=== PATIENT | female | born 1990 | race Caucasian/White ===

== ENCOUNTER 2018-09-06 14:56 | Outpatient (CLI) | payer MEDICAID ==
[2018-09-06 16:24] LABS: ADD UMIC YES; UR ASCORBIC ACID 40 mg/dL (NEGATIVE); UR BACTERIA FEW /HPF (NONE SEEN); UR BILIRUBIN (Dip) NEGATIVE (NEGATIVE); UR BLOOD (Dip) NEGATIVE (NEGATIVE); UR CLARITY SLIGHTLY CLOUDY (CLEAR); UR COLOR YELLOW (YELLOW); UR GLUCOSE (Dip) NEGATIVE (NEGATIVE); UR KETONES (Dip) NEGATIVE (NEGATIVE); UR LEUKOCYTE ESTERASE (Dip) 1+ Leu/ul (NEGATIVE); UR NITRITE (Dip) NEGATIVE (NEGATIVE); UR RBC 2 /HPF (0-5); UR SPECIFIC GRAVITY (Dip) 1.018 (1.003-1.030); UR SQUAMOUS EPITHELIAL CELL MANY /HPF (FEW); UR TOTAL PROTEIN (Dip) NEGATIVE (NEGATIVE); UR UROBILINOGEN (Dip) NEGATIVE (NEGATIVE); UR WBC 14 /HPF (0-5)
[2018-09-06 16:37] LABS: ADD MAN DIFF? NO; BASOPHILS % 0.3 % (0.0-2.0); EOSINOPHILS # 0.1 10^3/ul (0.0-0.5); HEMATOCRIT 35.9 % (37.0-47.0); HEMOGLOBIN 11.8 g/dl (12.0-16.0); MEAN CORPUSCULAR HEMOGLOBIN 31.3 pg (29.0-33.0); MEAN CORPUSCULAR HGB CONC 32.9 g/dl (32.0-37.0); MEAN CORPUSCULAR VOLUME 95.2 fl (82.0-101.0); MEAN PLATELET VOLUME 10.7 fl (7.4-10.4); MONOCYTE # 1.1 10^3/ul (0.3-0.9); MONOCYTES % 9.4 % (0.0-11.0); NEUTROPHIL # 7.9 10^3/ul (1.6-7.5); NEUTROPHILS % 70.8 % (39.0-77.0); PLATELET COUNT 219 10^3/UL (140-415); RED BLOOD COUNT 3.77 10^6/ul (4.20-5.40); RED CELL DISTRIBUTION WIDTH 12.2 % (11.5-14.5)
[2018-09-06 16:37] LABS: WHITE BLOOD COUNT 11.1 10^3/ul (4.8-10.8)
== END 2018-09-06 17:00 | disposition home or self-care (01) ==
LOC: OBT 14:56 → L-D 14:56 → OBT 17:00
DX: O62.9 Abnormality of forces of labor, unspecified (principal); Z3A.32 32 weeks gestation of pregnancy
CPT/HCPCS: 76815; 76817; 76818; 81001; 82731; 85025

== ENCOUNTER 2018-10-12 04:22 | Inpatient (IN) | payer MEDICAID ==
[2018-10-12] MEDS: LACTATED RINGER'S 1,000 ML IV ×4 (05:59→10:02)
[2018-10-12 06:58] LABS: RUPTURE FETAL MEMBRANES POSITIVE (NEGATIVE)
[2018-10-12] MEDS ORDERED: OXYTOCIN 30 UNITS/LR 500 ML IV ×7 (07:30→14:00)
[2018-10-12] MEDS ORDERED: AMPICILLIN 2 GM/NS (PMX) 100 ML IV (07:30)
[2018-10-12] MEDS ORDERED: BUTORPHANOL 2 MG INJ IV (07:30)
[2018-10-12] MEDS ORDERED: CEFAZOLIN 2 GM/50 ML (PMX) 50 ML IVPB ×2 (07:30→09:30)
[2018-10-12] MEDS ORDERED: IBUPROFEN 600 MG TAB PO (07:30)
[2018-10-12] MEDS ORDERED: CARBOPROST 250 MCG INJ IM ×4 (07:30→14:00)
[2018-10-12] MEDS ORDERED: MISOPROSTOL 200 MCG TAB PR ×4 (07:30→14:00)
[2018-10-12] MEDS ORDERED: METHYLERGONOVINE 0.2 MG INJ IM ×4 (07:30→14:00)
[2018-10-12 07:35] LABS: ADD MAN DIFF? NO
[2018-10-12 07:36] LABS: BASOPHILS % 0.4 % (0.0-2.0); EOSINOPHILS # 0.1 10^3/ul (0.0-0.5); EOSINOPHILS % 1.2 % (0.0-7.0); HEMATOCRIT 36.9 % (37.0-47.0); HEMOGLOBIN 12.2 g/dl (12.0-16.0); LYMPHOCYTES % 27.8 % (15.0-51.0); MEAN CORPUSCULAR HEMOGLOBIN 30.8 pg (29.0-33.0); MEAN CORPUSCULAR HGB CONC 33.1 g/dl (32.0-37.0); MEAN CORPUSCULAR VOLUME 93.2 fl (82.0-101.0); MEAN PLATELET VOLUME 12.8 fl (7.4-10.4); MONOCYTE # 1.1 10^3/ul (0.3-0.9); MONOCYTES % 10.6 % (0.0-11.0); NEUTROPHIL # 6.4 10^3/ul (1.6-7.5); NEUTROPHILS % 59.5 % (39.0-77.0); PLATELET COUNT 205 10^3/UL (140-415); RED BLOOD COUNT 3.96 10^6/ul (4.20-5.40); RED CELL DISTRIBUTION WIDTH 11.9 % (11.5-14.5)
[2018-10-12 07:36] LABS: WHITE BLOOD COUNT 10.7 10^3/ul (4.8-10.8)
[2018-10-12 07:41] LABS: INR 0.82; PROTIME 11.4 Sec (11.9-14.9); PT RATIO 0.9
[2018-10-12 07:42] LABS: PARTIAL THROMBOPLASTIN TIME 27.3 Sec (23.0-35.0)
[2018-10-12 07:45] LABS: ALANINE AMINOTRANSFERASE 12 IU/L (13-69); ALBUMIN 3.5 g/dl (3.3-4.9); ALBUMIN/GLOBULIN RATIO 1.09; ALKALINE PHOSPHATASE 149 IU/L (42-121); ANION GAP 11 (5-13); ASPARTATE AMINO TRANSFERASE 23 IU/L (15-46); BILIRUBIN,INDIRECT 0.2 mg/dl (0-1.1); BILIRUBIN,TOTAL 0.2 mg/dl (0.2-1.3); BLOOD UREA NITROGEN 12 mg/dl (7-20); CALCIUM 8.9 mg/dl (8.4-10.2); CARBON DIOXIDE 22 mmol/L (21-31); CHLORIDE 108 mmol/L (97-110); CREATININE 0.74 mg/dl (0.44-1.00); Estimated GFR > 60 mL/min (>60); GLUCOSE 87 mg/dl (70-220); POTASSIUM 3.7 mmol/L (3.5-5.1); SODIUM 141 mmol/L (135-144); TOTAL PROTEIN 6.7 g/dl (6.1-8.1)
[2018-10-12 08:14] LABS: HEPATITIS B SURFACE ANTIGEN NEGATIVE (NEGATIVE)
[2018-10-12] MEDS: DEXTROSE 5%-LR 1,000 ML IV (08:19)
[2018-10-12] MEDS ORDERED: ONDANSETRON 4 MG INJ (09:49)
[2018-10-12] MEDS ORDERED: CITRIC ACID/NA CITRATE 30 ML CUP (09:49)
[2018-10-12] MEDS: CITRIC ACID/NA CITRATE 30 ML CUP PO (11:08)
[2018-10-12] MEDS: ONDANSETRON 4 MG INJ IV (11:08)
[2018-10-12] MEDS ORDERED: OXYTOCIN 10 UNIT INJ (11:22)
[2018-10-12] MEDS ORDERED: morphine SULFATE/PF (10 MG/10 ML) INJ (11:22)
[2018-10-12] MEDS ORDERED: PHENYLephrine (100 MCG/ML) 10ML SYG (11:22)
[2018-10-12] MEDS ORDERED: AMPICILLIN 1 GM/NS (PMX) 50 ML IV (11:30)
[2018-10-12] MEDS ORDERED: KETOROLAC 30 MG INJ (11:47)
[2018-10-12] MEDS ORDERED: DEXAMETHASONE 4 MG/ML 1 ML INJ (11:47)
[2018-10-12] MEDS ORDERED: METOCLOPRAMIDE 10 MG INJ (11:47)
[2018-10-12] MEDS ORDERED: NALOXONE (0.4 MG/ML) INJ IV (12:00)
[2018-10-12] MEDS ORDERED: KETOROLAC 30 MG INJ IV (12:00)
[2018-10-12] MEDS ORDERED: HYDROmorphONE 0.5 MG/0.5 ML SYG IV ×2 (12:00)
[2018-10-12] MEDS ORDERED: EPHEDrine SULFATE 50 MG/5 ML SYG IV (12:00)
[2018-10-12] MEDS ORDERED: ONDANSETRON 4 MG INJ IV (12:00)
[2018-10-12] MEDS ORDERED: HYDROCODONE/APAP (5/325) TAB PO (12:00)
[2018-10-12] MEDS ORDERED: morphine 2 MG INJ IV ×2 (12:00)
[2018-10-12] MEDS ORDERED: ACETAMINOPHEN 500 MG TAB PO (12:00)
[2018-10-12] MEDS ORDERED: NALBUPHINE HCL (10 MG/1 ML) INJ IV (12:00)
[2018-10-12] MEDS: OXYTOCIN 30 UNITS/LR 500 ML IV ×2 (13:01→13:42)
[2018-10-12] MEDS: DIPHENHYDRAMINE 50 MG INJ IV (13:33)
[2018-10-12] MEDS ORDERED: DEXTROSE 5%-LR 1,000 ML IV (13:42)
[2018-10-12] MEDS ORDERED: IBUPROFEN 800 MG TAB PO (14:00)
[2018-10-12] MEDS ORDERED: METHYLERGONOVINE 0.2 MG TAB PO (14:00)
[2018-10-12] MEDS ORDERED: LANOLIN HPA 1 PKT TOP (14:00)
[2018-10-12 15:36] LABS: RAPID PLASMA REAGIN NONREACTIVE (NR)
[2018-10-12] MEDS: SENNA/DOCUSATE NA (8.6MG/50MG) TAB PO (20:57)
[2018-10-13] MEDS: LACTATED RINGER'S 1,000 ML IV ×3 (02:32→22:00)
[2018-10-13 08:04] LABS: ADD MAN DIFF? NO
[2018-10-13 08:12] LABS: BASOPHILS % 0.3 % (0.0-2.0); EOSINOPHILS % 0.1 % (0.0-7.0); HEMOGLOBIN 11.2 g/dl (12.0-16.0); LYMPHOCYTES # 3.1 10^3/ul (0.8-2.9); LYMPHOCYTES % 19.6 % (15.0-51.0); MEAN CORPUSCULAR HEMOGLOBIN 30.4 pg (29.0-33.0); MEAN CORPUSCULAR HGB CONC 32.9 g/dl (32.0-37.0); MEAN CORPUSCULAR VOLUME 92.1 fl (82.0-101.0); MEAN PLATELET VOLUME 12.1 fl (7.4-10.4); MONOCYTE # 1.5 10^3/ul (0.3-0.9); MONOCYTES % 9.4 % (0.0-11.0); NEUTROPHIL # 11.1 10^3/ul (1.6-7.5); NEUTROPHILS % 70.2 % (39.0-77.0); PLATELET COUNT 183 10^3/UL (140-415); RED BLOOD COUNT 3.69 10^6/ul (4.20-5.40); RED CELL DISTRIBUTION WIDTH 11.9 % (11.5-14.5)
[2018-10-13 08:12] LABS: WHITE BLOOD COUNT 15.8 10^3/ul (4.8-10.8)
[2018-10-13] MEDS ORDERED: ONDANSETRON 4 MG INJ IV (08:30)
[2018-10-13] MEDS ORDERED: DIPHENHYDRAMINE 50 MG INJ IV (08:30)
[2018-10-13] MEDS: KETOROLAC 30 MG INJ IV (08:34)
[2018-10-13] MEDS: SENNA/DOCUSATE NA (8.6MG/50MG) TAB PO ×2 (08:35→21:53)
[2018-10-13] MEDS: INFLUENZA VIRUS VACCINE 0.5 ML (DISPENSING) IM* (09:00)
[2018-10-13] MEDS ORDERED: DIPHTH/TET/ACEL PERTUSS (ADULT) 0.5 ML VIAL IM* (11:00)
[2018-10-13] MEDS ORDERED: IBUPROFEN 800 MG TAB PO (14:00)
[2018-10-13] MEDS: HYDROCODONE/APAP (5/325) TAB GTB ×2 (14:10→21:54)
[2018-10-13] MEDS: HYDROCODONE/APAP (5/325) TAB NGT (17:31)
[2018-10-13] MEDS: IBUPROFEN 800 MG TAB PO (21:53)
[2018-10-14] MEDS: IBUPROFEN 800 MG TAB PO ×3 (05:41→22:00)
[2018-10-14] MEDS: HYDROCODONE/APAP (5/325) TAB GTB ×3 (05:41→22:00)
[2018-10-14] MEDS: SENNA/DOCUSATE NA (8.6MG/50MG) TAB PO ×2 (09:13→22:00)
[2018-10-14] MEDS: INFLUENZA VIRUS VACCINE 0.5 ML (DISPENSING) IM* (14:45)
[2018-10-14] MEDS: HYDROCODONE/APAP (5/325) TAB NGT (19:43)
[2018-10-15] MEDS: HYDROCODONE/APAP (5/325) TAB NGT (02:10)
[2018-10-15] MEDS: IBUPROFEN 800 MG TAB PO ×2 (02:10→13:35)
[2018-10-15] MEDS: HYDROCODONE/APAP (5/325) TAB GTB ×2 (06:00→13:35)
[2018-10-15] MEDS: SENNA/DOCUSATE NA (8.6MG/50MG) TAB PO (08:43)
[2018-10-15] MEDS: MEASLES,MUMPS,RUBELLA VACCINE INJ SC* (09:00)
[2018-10-15] MEDS: DIPHTH/TET/ACEL PERTUSS (ADULT) 0.5 ML VIAL IM* (14:01)
== END 2018-10-15 16:46 | disposition home or self-care (01) | DRG 788 ==
LOC: OBT 04:22 → L-D 04:25 → OBT 07:23 → L-D 07:14 → PP1 15:10
PROC: 10D00Z1 Extraction of Products of Conception, Low, Open Approach (ICD-10-PCS; principal; 2018-10-12)
PROC: 3E033VJ Introduction of Other Hormone into Peripheral Vein, Percutaneous Approach (ICD-10-PCS; 2018-10-12)
DX: O76 Abnormality in fetal heart rate and rhythm complicating labor and delivery (principal); Z3A.37 37 weeks gestation of pregnancy; Z37.0 Single live birth
CPT/HCPCS: 76815; 76818; 80053; 84112; 85025; 85610; 85730; 86592; 86850; 86900; 86901; 87340; 88307; 90686; 90715; 93005; 99464